=== PATIENT | male | born 1965 | race Caucasian/White ===

== ENCOUNTER 2021-02-09 08:54 | Outpatient (CLI) | payer BC, SELFPAY ==
--- NOTE | 2021-02-09 08:45 | RT.EKG_ITS ---
APPROVED REPORT Exam: Resting ECG Patient Location: O HR:77 bpm ECG Measurements Heart Rate 77 AXIS PA 143 P 70 QRSd 85 QRS 80 QT 365 T 68 QTc 413 Conclusion Sinus rhythm...normal P axis, V-rate 60- 99 Normal Electrocardiogram
== END 2021-02-09 08:55 | disposition home or self-care (01) ==
LOC: DI.KIM 08:56
PROVIDERS: PCP Student in an Organized Health Care Education/Training Program; Visit Provider Student in an Organized Health Care Education/Training Program
DX: Z00.00 Encounter for general adult medical examination without abnormal findings (principal)
CPT/HCPCS: 93010

== ENCOUNTER 2022-04-26 09:18 | Emergency (ER) | payer BC, SELFPAY ==
--- NOTE | 2022-04-26 09:22 | W.ED.GENAD ---
Discharge Plan Disposition Patient Disposition: HOME Condition: Stable Discharge Details Clinical Impression: Left flank pain Primary Care Provider: Linn Mejia ED Provider: Tsering Cervantes Home Meds and New Rx's Prescriptions: Continued ibuprofen 200 mg tablet 200 mg PO Q6H PRN Discharge Instructions Instructions: Flank Pain (ED) Additional Instructions: Your lab work and imaging today is reassuring and shows no evidence of acute concerning or significant findings. Your symptoms may be due to a muscle strain. Alternate ice and heat to the affected area(s) several times daily for 20 minutes at a time. Alternate tylenol and motrin as needed and directed for pain. Call your primary care doctor's office today to schedule a follow-up appointment for reevaluation within the next week. You have been placed on care management's list to arrange for a follow-up appointment with our urologist for your flank pain and enlarged prostate. Return immediately to the emergency department if you develop any worsening or new concerning symptoms such as fever, difficulty urinating, rash, worsening pain or any other concerns. Referrals: Jeronimo Means MD [ [facility] ST[facility]FF [facility]YSICIAN] - Discharge Data Discharge Date/Time-TO BE ENTERED AT DEPARTURE: 04/26/22 13:50 Discharge Physician: Tsering Cervantes Medical Decision Making 0935 -- 56-year-old male with a history of ureteral calculi with laser lithotripsy with recently noted nodule on the superior pole of the left kidney suspicious for neoplasm on outpatient US on 03/19 who presents to the ED for Left flank pain for 1 month, worse since 4am. He states it had been recommended that he follow-up for outpatient CT urogram which was canceled with plans for outpatient MRI which he states has been scheduled for months from now. Vitals within normal limits. Patient appears comfortable and nontoxic. His pain is reproducible with movement and palpation. Discussed that his symptoms may be due to a musculoskeletal etiology but considering his recently noted nodule and history of kidney stone, will give IV toradol, bolus IVF, obtain screening labs, urinalysis and CT renal colic. Due to global IV contrast shortage, case discussed with radiologist Dr. Eller who recommends MRI of kidney with IV contrast for further assessment of nodule of left kidney. Patient declined Toradol. 1220 --labs and imaging reviewed and unremarkable. Case discussed and imaging reviewed with radiologist Dr. Eller. She states the previously noted nodule on ultrasound may have been a shadow from the spleen and there is no evidence of renal mass on CT or MRI. Results discussed with patient. He states he is also concerned about his enlarged prostate. As it was noted to be a mild prostatic enlargement and he has no difficulty with urinating, he is advised to follow-up with his primary care doctor for further discussion. He was also placed on urology follow-up list as needed for further evaluation. Patient advised to alternate ice and heat to his left flank and take 600 mg of ibuprofen every 6 hours for the next 2 days. Advised to continue to monitor for development of rash consistent with shingles. Usual and customary return precautions given prior to discharge. Medical Records Medical records reviewed: Yes I reviewed the patient's medical records. Medical records narrative: 03/19/22 ?US RENAL CLINICAL HISTORY:? r/o hydronephrosis; Hx calculi, N20.0 TECHNIQUE:? Ultrasound of both kidneys? performed using standard protocol. COMPARISON:? No exams were available for comparison FINDINGS: RIGHT KIDNEY: Measures 9.2 cm in length. No cysts evident. Normal cortical thickness and corticomedullary differentiation .No solid masses No intrarenal calculi nor hydronephrosis. LEFT KIDNEY: Measures 10.3 cm in length.? There is a 2.3 x 1.7 cm solid.? Nodule towards the superior pole, suspicious for neoplasm.? There is also a 4 millimeter hyperechoic focus below this which is possibly a nonobstructive calculus.? No simple cysts seen in the left kidney. URINARY BLADDER: Prevoid volume is 183 cc Postvoid volume is 9.5 cc No evidence of bladder mass nor diverticuli. Ureterovesical jets: Both identified and appear symmetrical Prostate gland slightly prominent..? Measures 2.7 x 3.8 x 3.5 cm/volume 19.7 cc IMPRESSION: 1.? There is a 2.3 x 1.7 cm solid nodule in the superior pole region of the left kidney, suspicious for neoplasm.? CT urogram recommended. 2.? Slightly prominent prostate gland. Imaging Data Radiologic Study: Radiologist's impression: ?CT RENAL COLIC WO CLINICAL HISTORY: ? L flank pain, r/o kidney stone.? TECHNIQUE:? Imaging Protocol: Axial computed tomography images with coronal and sagittal reformatted images were created and reviewed. CONTRAST MATERIAL:? Noncontrast COMPARISON:? US US RENAL from 03/19/2022 FINDINGS: ABDOMEN: Lung Bases: Normal where visualized. Liver: Normal attenuation. No measurable mass. Gallbladder and biliary tract: No radiodense calculus or dilation. Pancreas: Normal density, no calcifications or inflammatory process. Spleen: Normal. Kidneys: Normal size, contour and axis. No radiodense stones or obstructive uropathy. No masses seen. A mass was noted on prior ultrasound near the upper pole.? This is not visible on the current nonenhanced exam. Adrenal glands: No masses seen. Abdominal Aorta: Abdominal portion non-dilated. PELVIS:? Bladder: Distended., no gross wall thickening.? No stones.? Bowel: No obstruction or bowel wall thickening. Peritoneal cavity: No ascites, collection or mesenteric inflammatory response. ? Mild prostate enlargement. Bones: Degenerative disc changes L5-S1. IMPRESSION: Unremarkable CT scan of the abdomen and pelvis. No left renal mass is visible on the current exam which was detected by ultrasound.? MRI is recommended. Results of this exam have been verbally communicated with the emergency department provider. MR ABDOMEN WO/W CLINICAL HISTORY:? Left flank pain; MRI of Left kidney ? TECHNIQUE:? Multiplanar multisequence MRI of the Abdomen? was performed. CONTRAST MATERIAL:? IV Contrast: ? mL of Dotarem contrast administered. COMPARISON:? US US RENAL from 03/19/[address] RENAL COLIC WO from 04/26/2022 FINDINGS: Liver: Unremarkable. Pancreas: Unremarkable. Gallbladderand Bile Ducts: Unremarkable. Adrenals: Unremarkable. Kidneys: Unremarkable.? No left renal mass is identified which was questioned on ultrasound.? The spleen is position directly adjacent to the left kidney.? Spleen: Normal size.? Two small accessory spleens. Aorta: Unremarkable. Soft Tissues: Unremarkable. Bone: Unremarkable. Lymph Nodes: Unremarkable. IMPRESSION: Normal MR of the Abdomen. No evidence of renal mass.? No acute abnormality. Lab Data Lab results reviewed: Yes I reviewed the patient's lab results. Labs: Laboratory Tests Range/Units 04/26/22 04/26/22 04/26/22 09:40 09:46 09:46 WBC (4.4-10.8) 10^3/uL 4.93 RBC (4.36-5.78) 10^6/uL 5.03 Hgb (13.5-17.5) g/dL 15.1 Hct (40.0-50.0) % 43.5 MCV (80-95) fL 87 MCH (27.0-33.0) pg 30.0 MCHC (32.0-36.0) % 34.7 RDW (11.8-14.1) % 12.2 Plt Count (130-400) 10^3/uL 220 MPV (8.0-11.0) fL 10.4 Immature Gran % 0.2 Neutrophils % 59.5 Lymphocytes % 29.8 Monocytes % 9.5 Eosinophils % 0.6 Basophils % 0.4 Nucleated RBC % (0.0-0.3) % 0.0 Absolute Neutrophils (1.2-6.7) 10^3/uL 2.93 Absolute Lymphocytes (1.2-3.4) 10^3/uL 1.47 Absolute Monocytes (0.1-0.8) 10^3/uL 0.47 Absolute Eosinophils (0.0-0.7) 10^3/uL 0.03 Absolute Basophils (0.0-0.2) 10^3/uL 0.02 Sodium (136-145) mmol/L 141 Potassium (3.5-5.1) mmol/L 4.4 Chloride (98-107) mmol/L 104 Carbon Dioxide (21.0-32.0) mmol/L 29.7 Anion Gap (3-11) mmol/L 7.3 BUN (7-18) mg/dL 15 Creatinine (0.70-1.30) mg/dL 0.9 Estimated GFR/1.73 m2 (mL/min/1.73m2) >= 60.00 Glucose (74-106) mg/dL 99 Calcium (8.5-10.1) mg/dL 9.4 Total Bilirubin (0.2-1.0) mg/dL 0.5 AST (15-37) U/L 18 ALT (16-63) U/L 28 Alkaline Phosphatase (46-116) U/L 69 Total Protein (6.4-8.2) g/dL 7.5 Albumin (3.4-5.0) g/dL 4.3 Lipase (73-393) U/L 141 Urine Color (Yellow) Yellow Urine Clarity (Clear) Clear Urine pH (5-8) 6.0 Ur Specific [place] (1.005-1.025) 1.015 Urine Protein (Negative) mg/dL Negative Urine Ketones (Negative) mg/dL Negative Urine Blood (Negative) Negative Urine Nitrite (Negative) Negative Urine Bilirubin (Negative) Negative Urine Urobilinogen (Up TO 0.2) EU/dL 0.2 Ur Leukocyte Esterase (Negative) Negative Urine Glucose (Negative) mg/dL Negative HPI General Mode of arrival: ambulatory. Date/Time Provider Initiated Documentation: 04/26/22 09:21. Limitations to Documentation: no limitations. Information obtained by: patient. HPI Narrative: Patient is a 56-year-old male with a history of ureteral calculi and laser lithotripsy with recently noted nodule in the superior pole of the left kidney suspicious for neoplasm on outpatient ultrasound on 03/19 who presents to the ED with left flank pain for the past month, worse since 4am this morning. Patient describes the pain as constant, pressure-like, located in the left flank without radiation. He states he notes the pain is usually worse with walking uphill. He last took ibuprofen last night with some relief. He states the pain is currently 4/10. Patient saw Dr. Mejia earlier this month and was referred for CT urogram for further assessment of this nodule but this was canceled and he was referred for outpatient MRI which has been scheduled for months from now. Patient states he came to the ED due to worsening pain this morning. He denies any fever, nausea, vomiting, urinary symptoms, abdominal pain, injury or rash. Related Data Home Medications Medication Instructions Recorded Confirmed ibuprofen 200 mg tablet 200 mg PO Q6H PRN 11/18/19 04/26/22 Allergies Allergy/AdvReac Type Severity Reaction Status Date / Time Sulfa (Sulfonamide Allergy Verified 04/26/22 09:33 Antibiotics) lactose AdvReac Verified 04/26/22 09:33 General Stated Complaint: Urinary LIA: 3 Review of Systems All systems reviewed & are unremarkable except as noted in HPI and below Constitutional Constitutional: Denies chills, Denies excessive sweating, Denies fatigue, Denies fever(s), Denies weakness and Denies weight loss Eyes Eyes: Reports system reviewed and no additional complaints, except as documented and Denies blurry vision ENT Ears, Nose, Mouth, and Throat: Denies vertigo, Denies dizziness, Denies otalgia, Denies nasal congestion, Denies sore throat and Denies throat swelling Cardiovascular Cardiovascular: Denies chest pain, Denies syncope, Denies rapid heart rate and Denies dyspnea Respiratory Respiratory: Denies chest congestion, Denies cough, Denies pain on inspiration and Denies dyspnea Gastrointestinal Gastrointestinal: Denies abdominal pain, Denies diarrhea and Denies vomiting Genitourinary Genitourinary: Denies hematuria, Denies dysuria and Denies flank pain Musculoskeletal Musculoskeletal: Denies back pain and Denies joint swelling Integumentary/Breasts Skin/Breast: Denies lesions and Denies rash Neurologic Neurologic: Denies behavioral changes, Denies confusion, Denies vertigo, Denies dizziness, Denies syncope, Denies localized weakness and Denies weakness Psychiatric Psychiatric: Denies behavioral changes, Denies confusion and Denies depression Endocrine Endocrine: Denies excessive sweating and Denies fatigue Hematologic/Lymphatic Hematologic/Lymphatic: Denies easy bruising and Denies lymphadenopathy Allergic/Immunologic Allergic/Immunologic: Denies throat swelling PFSH All Active Problems (Updated 04/26/22 @ 11:55 by Tsering Cervantes DO) Left flank pain (Acute) Nodule of kidney (Acute) Incidental finding (renal US, 03/2022), 2.3x1.[address] Urogram [ ] Infection (Acute) Malabsorption (Acute) Sinusitis (Acute) Hx chronic sinus symptoms. Abx 01/2020. Rash and nonspecific skin eruption (Acute) ?Zoster, treated with antiviral Medical History (Updated 04/26/22 @ 11:55 by Tsering Cervantes DO) Renal calculi Varicocele 1998 [facility] Surgical History Status post laser lithotripsy of ureteral calculus 2012 pt history. 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 [employer] Pets and animals: Yes Pets and animals: dog(s) Sexually active: Yes Do you think of yourself as: straight/heterosexual Current gender identity: male What is your relationship status?: How often do you talk on the phone with friends or family?: three or more times per week How often do you get together with friends or relatives?: three or more times per week Do you belong to any clubs or organized social groups?: no Panel score (0-1 are the most socially isolated patients): 2 What type of physical activity do you participate in: walking Duration: 15-30 minutes/day Frequency: 3-4 times per week Heidi/Zoroastrianism: Islamic Special heidi needs: No Seatbelt use: always Helmet use: Yes Drive intox or ride w/intox school bus driver/mechanic: No Do you feel safe at home: Yes Do you feel safe in your relationship?: Yes Exam Const General: cooperative and healthy appearing Orientation: alert, awake and oriented x3 HENMT Head: normal to inspection Ears: hearing grossly normal bilaterally, external ears normal and TM's normal bilaterally General nose exam: external nose normal Face and sinus: normal facial exam Mouth: oral mucosae normal Teeth and gingiva: dentition normal Throat: posterior oropharynx normal Eyes General: appearance normal, both eyes and all related structures Eyelids: eyelids normal Pupils: PERRL EOM: EOM intact bilaterally Neck Neck: normal visual inspection Lymphatic: no lymphadenopathy noted Chest Chest: normal inspection of the chest Resp Effort & Inspection: normal respiratory effort and able to speak in complete sentences Auscultation: clear to auscultation bilaterally Cardio Rate: regular rate Rhythm: regular rhythm GI Inspection: normal to inspection Palpation: soft, not firm, no guarding, no hepatosplenomegaly, no masses and nontender Auscultation: normal bowel sounds Back/Spine/Pelvis Back: no CVA tenderness Skin General skin exam: no rashes or lesions noted Neuro General: patient alert and patient awake Cognition: normal cognition Speech: speech normal Gait: normal gait Motor: muscle tone normal throughout Sensory Exam: no sensory deficits noted Extrem General: normal to inspection, full ROM and capillary refill normal Psych Appearance: grossly normal Mental Status: mental status grossly normal Speech and Movement: speech and movement normal Affect: normal affect Thought Process: normal
--- OUTSIDE RECORDS SUMMARY | 2022-04-26 09:27 | XMS_ITS ---
:1965 Author Care Team Providers Name Role Phone DR. UMER NEWTON Primary Care Provider [phone] DR. UMER NEWTON Referring Provider [phone] Allergies Code Code System Name Reaction Severity Status Onset NKDA ? Medications Name Status Start Date Stop Date ? ? amoxicillin 500 mg capsule Active ? Not a vailable Take 1 capsule 3 times a day by oral route for 7 days. doxycycline hyclate Completed 06/29/2012 07/20/2012 DOSAGE:100 DOSEROUTE:PO REFILLS:0 DIRECTION:TAKE:1 ibuprofen 100 mg tablet Active ? Not avai lable Take 2 tablets every 4 hours by oral route as needed. Percocet 5 mg-325 mg tablet Completed 07/02/2011 04/0 08/2012 DOSAGE:1-2 DOSEROUTE:PO REFILLS:0 DIRECTION: Problems Name Status Onset Date Source ? Kidney Stone Active ? Procedures None recorded. Results Lab Results Date Name Specimen Result Interpretation Description Value Range Status Address ? 07/09/2013 Urinalysis ? Color yellow yellow Final Denzel finley Main Lab: [address] [facility], [place] ? ? ? Clarity clear clear Final [place] Main Lab: [address] [facility] [place] ? ? ? U Ph 6.5 5.0 -9.0 Final [place] Main Lab: [address] , [place] ? ? ? U Spg 1.025 <1.005 - Final [place] 1.025 Main Lab: [address] [facility], [place] ? ? ? U negative negative Final Thea chapa Protein Main Lab: [address] [facility], [place] ? ? ? U Glu negative negative Final Thea chapa Main Lab: [address] [facility], [place] ? ? ? U Ket negative negative Final Thea chapa Main Lab: [address], [place] ? ? ? U Donato negative negative Final Thea chapa Main Lab: [address], [place] ? ? ? U Nit negative negative Final Thea chapa Main Lab: [address], [place] ? ? ? U Bld negative negative Final Thea chapa Main Lab: [address], [place] ? ? ? U 0.2 0.2 -1.0 Final Suman Urobili E.U./dL Main Lab : [address], [place] ? ? ? U Leuko negative negative [facility] Lab: [address], [place] 07/09/2013 Cbcd Low Wbc 3.8 10^3 4.8-11.2 Final Mahoney wthorn cells/uL 10^3 Main Lab : cells/uL [address], [place] ? ? ? Rbc 4.7 10^6 4.0-5.9 [facility]6 Main Lab : cells/uL [address], [place] ? ? Low Hgb 13.6 g/dL 14.0-17.2 Final [facility] g/dL Main Lab: [address], [place] ? ? Low Hct 39.5 % 40.0-52.0 Final Parvinor n % Main Lab: [address], [place] ? ? ? Mcv 84.4 fL 82.0-98.0 Final Thea chapa fL Main Lab: [address], [place] ? ? ? Mch 29.1 pg 27.0-35.0 Final Thea chapa pg Main Lab: [address], [place] ? ? ? Mchc 34.4 % 32.0-37.0 Final Myles n % Main Lab: [address], [place] ? ? ? RDW-CV 12.0 % 9.0-17.9 Final Parvinor n % Main Lab: [address], [place] ? ? ? Mpv 10.80 fL 7.00-14.0 Final [place] orn 0 fL Main Lab: [address], [place] ? ? ? Plt 179 10^3 150-400 Final [place] n cells/uL 10^3 Main Lab : cells/uL [address], [place] ? ? ? Ne% 51.2 % 40.0-85.0 Final [place] n % Main Lab: [address], [place] ? ? ? Ly% 37.4 % 15.0-45.0 Final [place] n % Main Lab: [address], [place] ? ? ? Mo% 10.0 % 0.0-12.0 Final [place] % Main Lab: [address], [place] ? ? ? Eo% 1.1 % 0.0-7.0 % Final [place] n Main Lab: [address], [place] ? ? ? Ba% 0.3 % 0.0-3.0 % Final [place] n Main Lab: [address], [place] ? ? ? Ig% 0.0 % 0.0-0.5 % Final [place] n Main Lab: [address], [place] ? ? ? Ne# 2.0 10^3 1.2-8.5 Final [place] n cells/uL 10^3 Main Lab : cells/uL [address], [place] ? ? ? Ly# 1.4 10^3 1.0-4.5 Final [place] n cells/uL 10^3 Main Lab : cells/uL [address], [place] ? ? ? Mo# 0.4 10^3 0.0-1.0 Final [place] n cells/uL 10^3 Main Lab : cells/uL [address], [place] ? ? ? Eo# 0.0 10^3 0.0-0.5 Final [place] n cells/uL 10^3 Main Lab : cells/uL [address], [place] ? ? ? Ba# 0.0 10^3 0.0-0.2 Final [place] n cells/uL 10^3 Main Lab : cells/uL [address], [place] ? ? ? Ig# 0.0 10^3 ? Final [place] cells/uL Main Lab : [address], [place] 07/09/2013 Comprehensive ? Gluc. 105 mg/dL 74-118 Fin al [place] Metabolic Panel mg/dL M ain Lab: [address], [place] ? ? ? Bun. 11 mg/dL 6-25 Final [place] mg/dL Main Lab: [address], [place] ? ? ? Crea. 0.99 mg/dL 0.60-1.30 Final [place]orn mg/dL Main Lab: [address], [place] ? ? ? B/C 11 ratio 7-25 Final [place] Ratio. ratio Main Lab: [address], [place] ? ? ? Na. 138 mmol/L 135-145 Final [place] mmol/L Main Lab: [address], [place] ? ? ? K. 4.0 mmol/L 3.5-5.1 Final [place] mmol/L Main Lab: [address] , [place] ? ? ? Cl. 103 mmol/L 98-110 Final Hawtho rn mmol/L Main Lab: [address], [place] ? ? ? Co2. 28 mmol/L 22-32 Final [place] n mmol/L Main Lab: [address], [place] ? ? ? Ca. 9.2 mg/dL 8.5-10.5 Final [place] orn mg/dL Main Lab: [address], [place] ? ? ? Tp. 6.1 g/dL 6.1-8.3 Final [place] n g/dL Main Lab: [address], [place] ? ? ? Alb. 4.4 g/dL 3.5-4.8 Final [place] n g/dL Main Lab: [address], [place] ? ? High A/g 2.6 ratio 1.1-1.8 Final Ilirtho rn Ratio. ratio Main Lab: [address] , [place] ? ? ? Alp. 46 IU/L 38-126 Final [place] IU/L Main Lab: [address] , [place] ? ? ? Alt. 23 IU/L 0-63 IU/L Final Parvino rn Main Lab: [address] , [place] ? ? ? Ast. 22 IU/L 0-41 IU/L Final Parvino rn Main Lab: [address] , [place] ? ? ? Tbil. 0.8 mg/dL 0.2-1.2 Final Ilirtho rn mg/dL Main Lab: [address] [facility], [place] ? ? ? Egfr >60 >60 Final [place] mL/min/1.7 mL/min/1. Asia n Lab: 3 m^2 73 M^2 [address] mL/min/1. Komal , 73 m^2 [place] 06/29/2012 Tick/arthropod ? Tick see ? Final [place] Id W/ Reflex to comment Main Lab: B. [address]dorfer[address] 53 [address] DNA, PCR, Tick Co [facility], [place] 04/04/2012 CBC W/diff ? Wbc 5.0 10^3 4.8-11.2 Final [place] cells/uL 10^3 Main Lab : cells/uL [address] [facility], [place] ? ? ? Rbc- 4.6 10^6 4.0-5.9 Final [facility] 10[facility]6 Main Lab : cells/uL [address] [facility], [place] ? ? ? Hgb 14.6 g/dL 14.0-17.2 Final Hawt horn g/dL Main Lab: [address] [facility], [place] ? ? ? Hct 41.3 % 40.0-52.0 Final [facility] % Main Lab: [address] , [place] ? ? ? Mcv 89.2 fL 82.0-98.0 Final Thea rn fL Main Lab: [address], [place] ? ? ? Mch 31.4 pg 27.0-35.0 Final Thea rn pg Main Lab: [address], [place] ? ? ? Mchc 35.3 % 32.0-37.0 Final [place] n % Main Lab: [address], [place] ? ? ? Rdw 12.4 % 9.0-17.9 Final [place] % Main Lab: [address], [place] ? ? ? Plt 177 10^3 150-400 Final [place] n cells/uL 10^3 Main Lab : cells/uL [address], [place] ? ? ? Mpv 8.32 fL 7.00-14.0 Final Thea rn 0 fL Main Lab: [address], [place] ? ? ? Ne% 60.8 % 40.0-85.0 Final [place] n % Main Lab: [address], [place] ? ? ? Ly% 29.0 % 15.0-45.0 Final [place] n % Main Lab: [address], [place] ? ? ? Mo% 8.9 % 0.0-12.0 Final [place] % Main Lab: [address], [place] ? ? ? Eo% 1.0 % 0.0-7.0 % Final [place] n Main Lab: [address], [place] ? ? ? Ba% 0.4 % 0.0-3.0 % Final [place] n Main Lab: [address], [place] ? ? ? Ne# 3.1 10^3 1.2-8.5 Final [place] n cells/uL 10^3 Main Lab : cells/uL [address], [place] ? ? ? Ly# 1.5 10^3 1.0-4.5 Final [place] n cells/uL 10^3 Main Lab : cells/uL [address], [place] ? ? ? Mo# 0.5 10^3 0.0-1.0 Final [place] n cells/uL 10^3 Main Lab : cells/uL [address] , [place] ? ? ? Eo# 0.1 10^3 0.0-0.5 Final [place] n cells/uL 10^3 Main Lab : cells/uL [address] , [place] ? ? ? Ba# 0.0 10^3 0.0-0.2 Final [place] n cells/uL 10^3 Main Lab : cells/uL [address] , [place] 04/04/2012 Lipid Panel W/ ? Chol. 165 mg/dL 0-200 Fi nal [place] Reflex Direct mg/dL Asia n Lab: LDL [address] [facility], [place] ? ? ? Trig. 66 mg/dL 0-200 Final [place] mg/dL Main Lab: [address] [facility] [place] ? ? ? Dhdl. 41 mg/dL 29-71 Final [place] mg/dL [facility]: [address] [facility] [place] ? ? ? LDL 111 0-130 Final [place] Chol. mg/dL(calc mg/dL(jenna Asia n Lab: .) c.) [address] [facility], [place] ? ? ? Chol/ 4.0 ratio 0.0-5.0 Final Hawtho rn HDL Ratio ratio Main La b: [address] [facility] 04/04/2012 Lipid Panel W/ ? Chol. 165 mg/dL 0-200 Fi nal [place] Reflex Direct mg/dL Asia n Lab: LDL [address] [facility], [place] ? ? ? Trig. 66 mg/dL 0-200 Final [place] mg/dL Main Lab: [address] [facility], [place] ? ? ? Dhdl. 41 mg/dL 29-71 Final [place] mg/dL Main Lab: [address] [facility], [place] ? ? ? LDL 111 0-130 Final [place] Chol. mg/dL(calc mg/dL(jenna Asia n Lab: .) c.) [address] , [place] ? ? ? Chol/ 4.0 ratio 0.0-5.0 Final Hawth[place] rn HDL Ratio ratio Main La b: [address], [place] 04/04/2012 Comprehensive ? Gluc. 92 mg/dL 74-118 Fatmata l [place] Metabolic Panel mg/dL M ain Lab: [address] [facility] ? ? ? Bun. 11 mg/dL 6-25 Final [place] mg/dL Main Lab: [address] , [place] ? ? ? Crea. 0.89 mg/dL 0.60-1.30 Final [place] mg/dL Main Lab: [address] [facility] ? ? ? B/C 12 ratio 7-25 Final [place] Ratio. ratio Main Lab: [address] [facility] ? ? ? Na. 141 mmol/L 135-145 Final [place] mmol/L Main Lab: [address] [facility] ? ? ? K. 4.8 mmol/L 3.5-5.1 Final [place] mmol/L Main Lab: [address] [facility] ? ? ? Cl. 104 mmol/L 98-110 Final Hawtho rn mmol/L Main Lab: [address] [facility] ? ? ? Co2. 29 mmol/L 22-32 Final [place] n mmol/L Main Lab: [address] [facility] ? ? ? Ca. 9.6 mg/dL 8.5-10.5 Final [place] mg/dL Main Lab: [address] [facility] ? ? ? Tp. 6.2 g/dL 6.1-8.3 Final [place] n g/dL Main Lab: [address] [facility] ? ? ? Alb. 4.3 g/dL 3.5-4.8 Final [place] n g/dL Main Lab: [address] [facility] ? ? High A/g 2.3 ratio 1.1-1.8 Final [place] rn Ratio. ratio Main Lab: [address], [place] ? ? ? Alp. 55 IU/L 38-126 Final [place] IU/L Main Lab: [address], [place] ? ? ? Alt. 25 IU/L 0-63 IU/L Final Hawtho rn Main Lab: [address], [place] ? ? ? Ast. 19 IU/L 0-41 IU/L Final Hawtho rn Main Lab: [address], [place] ? ? ? Tbil. 0.9 mg/dL 0.2-1.2 Final Haw[place] rn mg/dL Main Lab: [address], [place] ? ? ? Egfr >60 >60 Final [place] mL/min/1.7 mL/min/1. Asia n Lab: 3 m^2 73 M^2 [address] mL/min/1. Komal Brown, 73 m^2 [place] 05/31/2011 Urinalysis ? Color yellow yellow Final Mahoney wthorn Main Lab: [address], [place] ? ? ? Clarity clear clear Final [place] Main Lab: [address], [place] ? ? ? U Ph 5.5 5.0 -9.0 Final [place] Main Lab: [address], [place] ? ? ABNORMAL U Spg >=1.030 <1.005 - Final [place] 1.025 Main Lab: [address], [place] ? ? ? U negative negative Final [place] rn Protein Main Lab: [address], [place] ? ? ? U Glu negative negative Final Hawth[place] rn Main Lab: [address], [place] ? ? ABNORMAL U Ket trace negative Final Haw[place] rn Main Lab: [address], [place] ? ? ? U Donato negative negative Final [place] rn Main Lab: [address], [place] ? ? ? U Nit negative negative Final Haw[place] rn Main Lab: [address], [place] ? ? ? U Bld negative negative Final Hawtho rn Main Lab: [address], [place] ? ? ? U 0.2 0.2 -1.0 Final [place] Urobili E.U./dL Main Lab : [address], [place] ? ? ? U Leuk negative negative Final [place] orn Main Lab: [address], [place] 10/22/2010 Urinalysis ? Color straw yellow Final Mahoney wthorn Main Lab: [address], [place] ? ? ? Clarity clear clear Final [place] Main Lab: [address], [place] ? ? ? U Ph 6.0 5.0 -9.0 Final [place] Main Lab: [address], [place] ? ? ? U Spg 1.025 <1.005 - Final [place] 1.025 Main Lab: [address], [place] ? ? ? U negative negative Final Hawth[place] rn Protein Main Lab: [address], [place] ? ? ? U Glu negative negative Final Hawth[place] rn Main Lab: [address], [place] ? ? ? U Ket negative negative Final Hawtho rn Main Lab: [address], [place] ? ? ? U Donato negative negative Final Haw[place] rn Main Lab: [address], [place] ? ? ? U Nit negative negative Final Hawth[place] rn Main Lab: [address], [place] ? ? ? U Bld negative negative Final [place] rn Main Lab: [address], [place] ? ? ? U 0.2 0.2 -1.0 Final [place] Urobili E.U./dL Main Lab : [address], [place] ? ? ? U Leuk negative negative Final [place] Main Lab: [address], [place] 09/07/2010 Urinalysis ? Color yellow yellow Final Mahoney wthorn Main Lab: [address], [place] ? ? ? Clarity clear clear Final [place] Main Lab: [address], [place] ? ? ? U Ph 5.5 5.0 -9.0 Final [place] Main Lab: [address], [place] ? ? ? U Spg 1.020 <1.005 - Final [place] 1.025 Main Lab: [address], [place] ? ? ? U negative negative Final Hawth[place] rn Protein Main Lab: [address], [place] ? ? ? U Glu negative negative Final Hawtho rn Main Lab: [address], [place] ? ? ? U Ket negative negative Final Hawtho rn Main Lab: [address], [place] ? ? ? U Donato negative negative Final Haw[place] rn Main Lab: [address], [place] ? ? ? U Nit negative negative Final Hawth[place] rn Main Lab: [address], [place] ? ? ? U Bld negative negative Final Hawth[place] rn Main Lab: [address], [place] ? ? ? U 0.2 0.2 -1.0 Final [place] Urobili E.U./dL Main Lab : [address], [place] ? ? ? U Leuk negative negative Final [place] orn Main Lab: [address], [place] 08/14/2010 Urinalysis ? Color straw yellow Final Mahoney wthorn Main Lab: [address], [place] ? ? ? Clarity clear clear Final [place] Main Lab: [address], [place] ? ? ? U Ph 6.5 5.0 -9.0 Final [place] Main Lab: [address], [place] ? ? ? U Spg <=1.005 <1.005 - Final [place] n 1.025 Main Lab: [address], [place] ? ? ? U negative negative Final Haw[place] rn Protein Main Lab: [address], [place] ? ? ? U Glu negative negative Final Hawth[place] rn Main Lab: [address], [place] ? ? ? U Ket negative negative Final Hawtho rn Main Lab: [address], [place] ? ? ? U Donato negative negative Final Hawth[place] rn Main Lab: [address], [place] ? ? ? U Nit negative negative Final Hawth[place] rn Main Lab: [address], [place] ? ? ? U Bld negative negative Final Hawtho rn Main Lab: [address], [place] ? ? ? U 0.2 0.2 -1.0 Final [place] Urobili E.U./dL Main Lab : [address], [place] ? ? ? U Leuk negative negative Final [place] orn Main Lab: [address], [place] 07/18/2010 Urinalysis ? Color straw yellow Final Mahoney wthorn Main Lab: [address], [place] ? ? ? Clarity clear clear Final [place] Main Lab: [address], [place] ? ? ? U Ph 7.5 5.0 -9.0 Final [place] Main Lab: [address], [place] ? ? ? U Spg 1.010 <1.005 - Final [place] 1.025 Main Lab: [address], [place] ? ? ? U negative negative Final Hawth[place] rn Protein Main Lab: [address], [place] ? ? ? U Glu negative negative Final Hawth[place] rn Main Lab: [address], [place] ? ? ? U Ket negative negative Final Hawtho rn Main Lab: [address], [place] ? ? ? U Donato negative negative Final Hawtho rn Main Lab: [address], [place] ? ? ? U Nit negative negative Final Hawtho rn Main Lab: [address], [place] ? ? ? U Bld negative negative Final Parvino rn Main Lab: [address], [place] ? ? ? U 0.2 0.2 -1.0 Final [place] Urobili E.U./dL Main Lab : [address], [place] ? ? ? U Leuk negative negative Final [place] orn Main Lab: [address], [place] Past Encounters None recorded. Social History None recorded. Vaccine List None recorded. Plan of Care Reminders Provider Appointments None recorded. ? ? Lab None recorded. ? ? Referral None recorded. ? ? Procedures None recorded. ? ? Surgeries None recorded. ? ? Imaging None recorded. ? ? Vitals 05/27/2019 11:33AM Established Patient 5 Height Weight BMI Blood Pressure 71 in 156 lbs 16 oz 21.9 kg/m2 110/64 mm[Hg] 04/05/2013 Height Weight Blood Pressure 61 in 156 lbs 100/70 mm[Hg] 12/29/2012 Height Weight Blood Pressure 71 in 163 lbs 102/64 mm[Hg] 06/29/2012 Height Weight Blood Pressure 71 in 161 lbs 108/70 mm[Hg] 03/09/2012 Height Weight Blood Pressure 71 in 163 lbs 108/70 mm[Hg] 05/31/2011 Height Weight 71 in 165 lbs 10/22/2010 Height Weight Blood Pressure 71 in 165 lbs 86/56 mm[Hg] 09/07/2010 Height Weight 69 in 165 lbs 08/14/2010 Height Weight Blood Pressure 69 in 165 lbs 100/60 mm[Hg] 07/18/2010 Height Weight Blood Pressure 69 in 165 lbs 100/74 mm[Hg]
[2022-04-26 09:28] VITALS: BP 114/75; PULSE 79; RESP 16; TEMP 36.6; O2SAT 98
--- NOTE | 2022-04-26 09:45 | DI.CT_ITS ---
Exam(s) CT RENAL COLIC WO EXAM: CT RENAL COLIC WO CLINICAL HISTORY: L flank pain, r/o kidney stone. TECHNIQUE: Imaging Protocol: Axial computed tomography images with coronal and sagittal reformatted images were created and reviewed. CONTRAST MATERIAL: Noncontrast COMPARISON: US US RENAL from 03/19/2022 FINDINGS: ABDOMEN: Lung Bases: Normal where visualized. Liver: Normal attenuation. No measurable mass. Gallbladder and biliary tract: No radiodense calculus or dilation. Pancreas: Normal density, no calcifications or inflammatory process. Spleen: Normal. Kidneys: Normal size, contour and axis. No radiodense stones or obstructive uropathy. No masses seen. A mass was noted on prior ultrasound near the upper pole. This is not visible on the current nonenh anced exam. Adrenal glands: No masses seen. Abdominal Aorta: Abdominal portion non-dilated. PELVIS: Bladder: Distended., no gross wall thickening. No stones. Bowel: No obstruction or bowel wall thickening. Peritoneal cavity: No ascites, collection or mesenteric inflammatory response. Mild prostate enlarg ement. Bones: Degenerative disc changes L5-S1. IMPRESSION: Unremarkable CT scan of the abdomen and pelvis. No left renal mass is visible on the current exam which was detected by ultrasound. MRI is recommend ed. Results of this exam have been verbally communicated with the emergency department provider. RADIATION DOSE DELIVERED: 694.87mGy.cm Total DLP DATA REPOSITORY: All CT scans at this facility are submitted to the National Radiology Data Registry (NRDR) Dose Index Registry (DIR) with the [employer] (A[employer]). RADIATION OPTIMIZATION: All CT scans at this facility use at least one of these dose optimization te chniques: automated exposure control; mA and/or kV adjustment per patient size (includes targeted exa ms where dose is matched to clinical indication); or iterative reconstruction.
[2022-04-26 09:46] LABS: Bilirubin Negative (Negative); Blood Negative (Negative); Clarity Clear (Clear); Glucose Negative (Negative); Ketones Negative (Negative); Leukocyte Esterase Negative (Negative); Nitrite Negative (Negative); Specific Gravity 1.015 (1.005-1.025); Urobilinogen 0.2 EU/dL (Up TO 0.2)
[2022-04-26 10:08] LABS: Abs Immature Grans 0.01 10^3/uL (0.0-0.06); Absolute Basophil Count 0.02 10^3/uL (0.0-0.2); Absolute Eosinophil Count 0.03 10^3/uL (0.0-0.7); Absolute Lymphocyte Count 1.47 10^3/uL (1.2-3.4); Absolute Monocyte Count 0.47 10^3/uL (0.1-0.8); Absolute Neutrophil Count 2.93 10^3/uL (1.2-6.7); Basophils % 0.4; Eosinophils % 0.6; HCT 43.5 % (40.0-50.0); HGB 15.1 g/dL (13.5-17.5); Immature Grans % 0.2; Lymphocytes % 29.8; MCHC 34.7 % (32.0-36.0); MCV 87 fL (80-95); MPV 10.4 fL (8.0-11.0); Monocytes % 9.5; Neutrophils % 59.5; Platelet Count 220 10^3/uL (130-400); RBC 5.03 10^6/uL (4.36-5.78); RDW 12.2 % (11.8-14.1); RDW-SD 38.5 fL; WBC 4.93 10^3/uL (4.4-10.8)
--- NOTE | 2022-04-26 10:11 | DI.MRI_ITS ---
Exam(s) MR ABDOMEN WO/W EXAM: MR ABDOMEN WO/W CLINICAL HISTORY: Left flank pain; MRI of Left kidney TECHNIQUE: Multiplanar multisequence MRI of the Abdomen was performed. CONTRAST MATERIAL: IV Contrast: mL of Dotarem contrast administered. COMPARISON: US US RENAL from 03/19/[address] RENAL COLIC WO from 04/26/2022 FINDINGS: Liver: Unremarkable. Pancreas: Unremarkable. Gallbladderand Bile Ducts: Unremarkable. Adrenals: Unremarkable. Kidneys: Unremarkable. No left renal mass is identified which was questioned on ultrasound. The spl een is position directly adjacent to the left kidney. Spleen: Normal size. Two small accessory spleens. Aorta: Unremarkable. Soft Tissues: Unremarkable. Bone: Unremarkable. Lymph Nodes: Unremarkable. IMPRESSION: Normal MR of the Abdomen. No evidence of renal mass. No acute abnormality. DATA REPOSITORY:
[2022-04-26] MEDS: Normal Saline 1,000 ML 1000 ML IV (10:27)
[2022-04-26 10:58] LABS: ALT 28 U/L (16-63); AST 18 U/L (15-37); Albumin 4.3 g/dL (3.4-5.0); Alkaline Phosphatase 69 U/L (46-116); Anion Gap 7.3 mmol/L (3-11); BUN 15 mg/dL (7-18); Bilirubin, Total 0.5 mg/dL (0.2-1.0); CO2 29.7 mmol/L (21.0-32.0); CREATININE 0.9 mg/dL (0.70-1.30); Calcium 9.4 mg/dL (8.5-10.1); Chloride 104 mmol/L (98-107); Glucose 99 mg/dL (74-106); Lipase 141 U/L (73-393); Potassium 4.4 mmol/L (3.5-5.1); Sodium 141 mmol/L (136-145); Total Protein 7.5 g/dL (6.4-8.2)
--- NOTE | 2022-04-26 12:36 | NUR.NOTE ---
Nursing Note: Pt info faxed to [facility] for follow up for enlarged prostate & flank pain. Lizzeth, ED
== END 2022-04-26 13:50 | disposition home or self-care (01) ==
PROVIDERS: Emergency Provider Physician Assistant; PCP Student in an Organized Health Care Education/Training Program
DX: R10.9 Unspecified abdominal pain (principal); N28.89 Other specified disorders of kidney and ureter
CPT/HCPCS: 36415; 74183; 80053; 83690; 96360; 99284; 74176; 81003; 85025; 99283

== ENCOUNTER 2023-05-23 01:39 | Outpatient (CLI) | payer BC, SELFPAY ==
--- OUTSIDE RECORDS SUMMARY | 2023-05-23 01:41 | XMS_ITS | Continuity of Care Document ---
Author Name Unknown Organization [facility] Address [address] [place] [address] Care Team Providers Care Spa Director/Finance Name Role Phone HEMANT EDWARDS Primary Care Physician Encounter [facility] NBR [id number] Date(s): 05/21/23 - 05/21/23 [facility] [address] [place] [address]- us Patient Care team information Care Team Personnel Name: HEMANT EDWARDS Position: No Access Member Role: Primary Care Physician Address: Address: [address] [place] [id number]
[2023-05-23 09:12] LABS: WBC 0-2 HPF (0-5)
[2023-05-23 09:13] LABS: Bacteria Few HPF (Negative); C & S Indicated? Yes; Casts Negative LPF (Negative); Crystals Negative HPF (Negative); Epithelial Cells Negative HPF (Negative); Mucus Trace (Negative)
[2023-05-23 09:43] LABS: ALT 29 U/L (16-63); AST 19 U/L (15-37); Albumin 3.9 g/dL (3.4-5.0); Alkaline Phosphatase 69 U/L (46-116); Anion Gap 5.6 mmol/L (3-11); BUN 15 mg/dL (7-18); Bilirubin, Total 0.4 mg/dL (0.2-1.0); CO2 30.4 mmol/L (21.0-32.0); CREATININE 0.9 mg/dL (0.70-1.30); Calcium 8.8 mg/dL (8.5-10.1); Calculated LDL 130 mg/dL (<100); Chloride 105 mmol/L (98-107); Cholesterol 195 mg/dL (<200); Estimated GFR 100.86 (mL/min/1.73m2); Glucose 96 mg/dL (74-106); HDL Cholesterol 59 mg/dL (40-60); Potassium 4.2 mmol/L (3.5-5.1); Sodium 141 mmol/L (136-145); Total Protein 7.1 g/dL (6.4-8.2); Triglyceride 33 mg/dL (<150)
[2023-05-23 10:01] LABS: Vitamin D 25 Total 21.7 ng/mL (30-100)
[2023-05-23 20:01] LABS: PSA, Screening 1.4 ng/mL (<=3.5)
== END 2023-05-23 01:40 | disposition home or self-care (01) ==
LOC: LBO 01:39
PROVIDERS: PCP Student in an Organized Health Care Education/Training Program; Referring Provider Student in an Organized Health Care Education/Training Program; Visit Provider Student in an Organized Health Care Education/Training Program
DX: B99.9 Unspecified infectious disease (principal); N20.0 Calculus of kidney; N28.89 Other specified disorders of kidney and ureter; N40.0 Benign prostatic hyperplasia without lower urinary tract symptoms; N42.89 Other specified disorders of prostate
CPT/HCPCS: 36415; 80053; 80061; 82306; 84153; 81015; 87086